=== PATIENT | male | born 1930 | race Caucasian/White ===

== ENCOUNTER → 2017-05-28 | Outpatient (CLI) | payer OTHER | LOC: FIMAGING 08:03 | PROVIDERS: ATTEND Orthopaedic Surgery Foot and Ankle Surgery | DX: M25.572 Pain in left ankle and joints of left foot (principal); M76.72 Peroneal tendinitis, left leg; M76.822 Posterior tibial tendinitis, left leg; M72.2 Plantar fascial fibromatosis; M76.62 Achilles tendinitis, left leg; M76.892 Other specified enthesopathies of left lower limb, excluding foot; Z87.81 Personal history of (healed) traumatic fracture ==